=== PATIENT | female | born 1955 | race Caucasian/White ===

== ENCOUNTER 2017-10-05 11:32 | Emergency (ER) | payer MEDICAID ==
[~2017-10-05] VITALS: Ht 160 cm; Wt 84.0 kg
[2017-10-05 13:10] LABS: BASOPHILS % 0.6 % (0.0-2.0); EOSINOPHILS % 4.8 % (0.0-5.0); HEMATOCRIT. 37.6 % (36.0-48.0); HEMOGLOBIN. 12.9 g/dL (12.0-16.0); LYMPHOCYTES % 30.5 % (20.0-50.0); MEAN CORPUSCULAR VOLUME 81.4 fL (81.0-99.0); MEAN PLATELET VOLUME 8.8 fl (7.4-10.4); MONOCYTES % 6.4 % (2.0-8.0); NEUTROPHILS % 57.7 % (40.0-76.0); PLATELET 341 x1000/uL (130-400); RED BLOOD CELL COUNT 4.62 mill/uL (4.2-5.4); RED CELL DISTRIBUTION WIDTH 13.4 % (11.6-14.6)
[2017-10-05 13:16] LABS: PROTHROMBIN TIME 10.7 sec (9.4-11.6)
[2017-10-05 13:22] LABS: CHLORIDE 104 mEq/L (98-107)
[2017-10-05 15:32] LABS: KETONES URINE NEGATIVE (NEGATIVE); LEUKOCYTE ESTERASE URINE 1+ (NEGATIVE); NITRITE URINE NEGATIVE (NEGATIVE); OCCULT BLOOD URINE TRACE (NEGATIVE); PH URINE 5.5 (4.5-8.0); PROTEIN URINE NEGATIVE (NEGATIVE); SPECIFIC GRAVITY URINE 1.013 (1.005-1.030); UROBILINOGEN URINE 0.2 E.U./dL (0.2-1.0)
[2017-10-05 15:45] LABS: CLARITY URINE CLEAR (CLEAR); COLOR URINE SLIGHTLY BLOODY (YELLOW)
[2017-10-05] MEDS ORDERED: CEPHALEXIN 500MG CAPSULE PO ONE (16:30)
[2017-10-05 16:33] VITALS: BP 141/77
== END 2017-10-05 16:35 | disposition home or self-care (01) ==
LOC: ER 13:33
DX: N39.0 Urinary tract infection, site not specified (principal); I10 Essential (primary) hypertension
CPT/HCPCS: 36415; 80053; 81003; 85025; 85610; 87077; 87086; 99284

== ENCOUNTER 2017-11-12 21:12 | Emergency (ER) | payer MEDICAID ==
[~2017-11-12] VITALS: Ht 160 cm; Wt 85.0 kg
[2017-11-12] MEDS ORDERED: ASPIRIN 81MG TABLET PO ONE (23:45)
[2017-11-13 00:11] LABS: BASOPHILS % 0.9 % (0.0-2.0); CHLORIDE 101 mEq/L (98-107); EOSINOPHILS % 2.6 % (0.0-5.0); HEMATOCRIT. 38.5 % (36.0-48.0); HEMOGLOBIN. 13.2 g/dL (12.0-16.0); LYMPHOCYTES % 24.8 % (20.0-50.0); MEAN CORPUSCULAR HEMOGLOBIN 27.7 pg (28.0-32.0); MEAN PLATELET VOLUME 8.7 fl (7.4-10.4); MONOCYTES % 7.6 % (2.0-8.0); NEUTROPHILS % 64.1 % (40.0-76.0); PLATELET 400 x1000/uL (130-400); RED BLOOD CELL COUNT 4.76 mill/uL (4.2-5.4); RED CELL DISTRIBUTION WIDTH 13.3 % (11.6-14.6)
[2017-11-13 00:17] LABS: D-DIMER 0.56 mg/L FEU (<0.50); PARTIAL THROMBOPLASTIN TIME 27.4 sec (23.4-31.0); PROTHROMBIN TIME 10.6 sec (9.4-11.6)
[2017-11-13 00:25] LABS: CLARITY URINE CLEAR (CLEAR); COLOR URINE YELLOW (YELLOW); KETONES URINE NEGATIVE (NEGATIVE); LEUKOCYTE ESTERASE URINE 2+ (NEGATIVE); NITRITE URINE NEGATIVE (NEGATIVE); OCCULT BLOOD URINE TRACE (NEGATIVE); PH URINE 7.5 (4.5-8.0); PROTEIN URINE TRACE (NEGATIVE); SPECIFIC GRAVITY URINE 1.023 (1.005-1.030); UROBILINOGEN URINE 0.2 E.U./dL (0.2-1.0)
[2017-11-13] MEDS ORDERED: KETOROLAC 30MG/ML VIAL IV ONE (01:00)
[2017-11-13] MEDS ORDERED: CEFTRIAXONE 1 G PREMIX 50 ML IV NR (02:30)
[2017-11-13] MEDS ORDERED: IOHEXOL-350 100 ML BOTTLE ONE (02:57)
[2017-11-13 04:08] VITALS: BP 139/79
== END 2017-11-13 04:09 | disposition home or self-care (01) ==
LOC: ER 21:12 → CANBEDREQ 11-13 06:59
DX: N39.0 Urinary tract infection, site not specified (principal); R07.89 Other chest pain; M32.9 Systemic lupus erythematosus, unspecified; I10 Essential (primary) hypertension; Z98.890 Other specified postprocedural states; Z79.82 Long term (current) use of aspirin
CPT/HCPCS: 36415; 71045; 71275; 80053; 81003; 83880; 84484; 85025; 85379; 85610; 85730; 87077; 87086; 93005; 96365; 96375; 99285; J0696; J1885; Q9967; Z7610

== ENCOUNTER 2022-01-11 11:25 | Emergency (ER) | payer MEDICARE, MEDICAID ==
[~2022-01-11] VITALS: Ht 162.6 cm; Wt 60.0 kg
[2022-01-11] MEDS ORDERED: VISCOUS LIDOCAINE 2% 15 ML UDC MM STA (12:31)
[2022-01-11] MEDS ORDERED: MAGNESIUM/ALUMINUM HYDROXIDE/SIMETHICONE 30ML UDC PO ONE (12:45)
[2022-01-11] MEDS ORDERED: FAMOTIDINE 20MG/2ML VIAL IV ONE (12:45)
[2022-01-11] MEDS ORDERED: MORPHINE SULFATE 2 MG/ML CPJ (NOT FOR IM USE) IV ONE (12:45)
[2022-01-11] MEDS ORDERED: ONDANSETRON HCL 4MG/2ML INJ IV ONE (12:45)
[2022-01-11 13:18] LABS: CHLORIDE 102 mEq/L (98-107)
[2022-01-11 13:21] LABS: PROTHROMBIN TIME 10.8 sec (9.6-11.0)
[2022-01-11 13:23] LABS: EOSINOPHILS % 0.6 % (0.0-5.0); HEMOGLOBIN. 12.5 g/dL (12.0-16.0); LYMPHOCYTES % 19.6 % (20.0-50.0); MEAN CORPUSCULAR HEMOGLOBIN 26.1 pg (28.0-32.0); MEAN CORPUSCULAR VOLUME 77.5 fL (81.0-99.0); MEAN PLATELET VOLUME 8.7 fl (7.4-10.4); NEUTROPHILS % 73.8 % (40.0-76.0); PLATELET 485 x1000/uL (130-400); RED BLOOD CELL COUNT 4.78 mill/uL (4.2-5.4); RED CELL DISTRIBUTION WIDTH 14.6 % (11.6-14.6)
[2022-01-11] MEDS ORDERED: KETOROLAC 30MG/ML VIAL IV ONE (14:45)
[2022-01-11] MEDS ORDERED: METOCLOPRAMIDE HCL 10MG/2ML VIAL IV ONE (14:45)
[2022-01-11 14:53] VITALS: BP 122/68
[2022-01-11] MEDS ORDERED: ONDA4TAB11 PO (15:58)
== END 2022-01-11 16:04 | disposition home or self-care (01) ==
LOC: ER 11:25
DX: R10.13 Epigastric pain (principal); R11.2 Nausea with vomiting, unspecified; I10 Essential (primary) hypertension; E11.9 Type 2 diabetes mellitus without complications; M32.9 Systemic lupus erythematosus, unspecified; M81.0 Age-related osteoporosis without current pathological fracture; T43.215A Adverse effect of selective serotonin and norepinephrine reuptake inhibitors, initial encounter; Y92.018 Other place in single-family (private) house as the place of occurrence of the external cause
CPT/HCPCS: 36415; 71045; 80053; 83690; 83880; 84484; 85025; 85610; 93005; 96374; 96375; 99285; J1885; J2270; J2405; J2765; J3490

== ENCOUNTER 2022-03-06 10:34 | Emergency (ER) | payer OTHER, MEDICAID ==
[~2022-03-06] VITALS: Ht 160 cm; Wt 84.0 kg
[~2022-03-06 10:34] MED LIST: ONDA4TAB11 PO
[2022-03-06 10:53] VITALS: BP 151/61
[2022-03-06] MEDS ORDERED: IBUPROFEN 600MG TABLET PO NR (13:28)
[2022-03-06] MEDS ORDERED: ONDANSETRON 4MG ODT PO NR (13:28)
[2022-03-06 13:37] LABS: CLARITY URINE CLEAR (CLEAR); COLOR URINE YELLOW (YELLOW); KETONES URINE TRACE (NEGATIVE); LEUKOCYTE ESTERASE URINE TRACE (NEGATIVE); NITRITE URINE NEGATIVE (NEGATIVE); OCCULT BLOOD URINE NEGATIVE (NEGATIVE); PROTEIN URINE 1+ (NEGATIVE); SPECIFIC GRAVITY URINE 1.021 (1.005-1.030); UROBILINOGEN URINE 0.2 E.U./dL (0.2-1.0)
[2022-03-06 14:54] LABS: BASOPHILS % 0.4 % (0.0-2.0); EOSINOPHILS % 2.2 % (0.0-5.0); HEMATOCRIT. 35.7 % (36.0-48.0); HEMOGLOBIN. 11.7 g/dL (12.0-16.0); LYMPHOCYTES % 17.5 % (20.0-50.0); MEAN CORPUSCULAR HEMOGLOBIN 26.6 pg (28.0-32.0); MEAN CORPUSCULAR VOLUME 80.9 fL (81.0-99.0); MEAN PLATELET VOLUME 8.6 fl (7.4-10.4); MONOCYTES % 5.7 % (2.0-8.0); NEUTROPHILS % 74.2 % (40.0-76.0); PLATELET 396 x1000/uL (130-400); RED BLOOD CELL COUNT 4.41 mill/uL (4.2-5.4); RED CELL DISTRIBUTION WIDTH 15.2 % (11.6-14.6)
[2022-03-06 15:01] LABS: CHLORIDE 103 mEq/L (98-107)
[2022-03-06] MEDS ORDERED: MECL-217 PO ×3 (15:49→16:09)
[2022-03-06] MEDS ORDERED: NAPR-681 PO ×3 (15:49→16:09)
== END 2022-03-06 16:11 | disposition home or self-care (01) ==
LOC: ER 10:34
DX: R42 Dizziness and giddiness (principal); R51.9 Headache, unspecified; I10 Essential (primary) hypertension; E11.9 Type 2 diabetes mellitus without complications
CPT/HCPCS: 36415; 71045; 80053; 81003; 85025; 93005; 99285; Q0162

== ENCOUNTER 2022-06-11 10:08 | Emergency (ER) | payer OTHER, MEDICAID ==
[~2022-06-11] VITALS: Ht 162.6 cm; Wt 80.0 kg
[~2022-06-11 10:08] MED LIST changes: +MECL-217 PO; +NAPR-681 PO
[2022-06-11] MEDS ORDERED: MECLIZINE 25MG TABLET PO ONE (12:15)
[2022-06-11] MEDS ORDERED: SODIUM CHLORIDE 0.9% 1,000 ML IV ONE (12:15)
[2022-06-11 12:33] LABS: BASOPHILS % 0.8 % (0.0-2.0); EOSINOPHILS % 4.6 % (0.0-5.0); HEMATOCRIT. 37.3 % (36.0-48.0); HEMOGLOBIN. 12.2 g/dL (12.0-16.0); LYMPHOCYTES % 21.3 % (20.0-50.0); MEAN CORPUSCULAR HEMOGLOBIN 26.9 pg (28.0-32.0); MEAN CORPUSCULAR VOLUME 82.2 fL (81.0-99.0); MONOCYTES % 6.3 % (2.0-8.0); PLATELET 355 x1000/uL (130-400); RED BLOOD CELL COUNT 4.53 mill/uL (4.2-5.4); RED CELL DISTRIBUTION WIDTH 13.9 % (11.6-14.6)
[2022-06-11 14:54] LABS: CLARITY URINE CLEAR (CLEAR); COLOR URINE YELLOW (YELLOW); KETONES URINE NEGATIVE (NEGATIVE); LEUKOCYTE ESTERASE URINE 2+ (NEGATIVE); NITRITE URINE NEGATIVE (NEGATIVE); OCCULT BLOOD URINE NEGATIVE (NEGATIVE); PROTEIN URINE NEGATIVE (NEGATIVE); SPECIFIC GRAVITY URINE 1.015 (1.005-1.030); UROBILINOGEN URINE 0.2 E.U./dL (0.2-1.0)
[2022-06-11 15:01] LABS: CHLORIDE 107 mEq/L (98-107)
[2022-06-11] MEDS ORDERED: MECL-159 MT (16:43)
[2022-06-11] MEDS ORDERED: IOHEXOL-350 100 ML BOTTLE ONE (16:52)
[2022-06-11 17:00] VITALS: BP 112/51
== END 2022-06-11 17:48 | disposition home or self-care (01) ==
LOC: ER 10:08
DX: R42 Dizziness and giddiness (principal); I10 Essential (primary) hypertension; E11.9 Type 2 diabetes mellitus without complications; M32.9 Systemic lupus erythematosus, unspecified; Z79.84 Long term (current) use of oral hypoglycemic drugs; Z79.899 Other long term (current) drug therapy
CPT/HCPCS: 36415; 70450; 70496; 73030; 80053; 81003; 83605; 84484; 85025; 93005; 96360; 96361; 99285; J7030; J8597; Q9967

== ENCOUNTER → 2022-12-21 | Day surgery (SDC) | payer OTHER, MEDICAID, MEDICARE ==
[2022-12-21] VITALS (11 sets, daily range): BP systolic 119–138; BP diastolic 41–65
[~2022-12-21] VITALS: Ht 160 cm; Wt 83.0 kg
[~2022-12-21] MED LIST changes: +FENTANYL CITRATE/PF 50MCG/ML 2ML VIAL IV ONE; +FENTANYL CITRATE/PF 50MCG/ML 2ML VIAL ONE; +HYDROCODONE/ACETAMINOPHEN 5/325MG TABLET PO PRN; +LIDOCAINE HCL 1% 10 MG/ML 10ML VIAL ONE; +MECL-159 MT; +SODIUM BICARBONATE 4% (2.4MEQ) 5ML VIAL IV ONE
[2022-12-21 13:22] LABS: HEMATOCRIT 33.7 % (36.0-48.0); HEMOGLOBIN 11.5 g/dL (12.0-16.0)
== END | disposition home or self-care (01) ==
LOC: RAD 08:31
PROVIDERS: ATTEND Internal Medicine Nephrology
DX: L93.0 Discoid lupus erythematosus (principal); I12.9 Hypertensive chronic kidney disease with stage 1 through stage 4 chronic kidney disease, or unspecified chronic kidney disease; E11.22 Type 2 diabetes mellitus with diabetic chronic kidney disease; N18.30 Chronic kidney disease, stage 3 unspecified; Z79.84 Long term (current) use of oral hypoglycemic drugs; Z79.899 Other long term (current) drug therapy; Z98.890 Other specified postprocedural states
CPT/HCPCS: 36415; 50200; 76942; 85014; 85018; 88305; 88346; 88348; J3010; J3490; Z7610

== ENCOUNTER 2022-12-28 07:23 | Emergency (ER) | payer OTHER, MEDICAID, MEDICARE ==
[~2022-12-28] VITALS: Ht 160 cm; Wt 80.6 kg
[~2022-12-28 07:23] MED LIST changes: -FENTANYL CITRATE/PF 50MCG/ML 2ML VIAL IV ONE; -FENTANYL CITRATE/PF 50MCG/ML 2ML VIAL ONE; -HYDROCODONE/ACETAMINOPHEN 5/325MG TABLET PO PRN; -LIDOCAINE HCL 1% 10 MG/ML 10ML VIAL ONE; -SODIUM BICARBONATE 4% (2.4MEQ) 5ML VIAL IV ONE
[2022-12-28] MEDS ORDERED: ONDANSETRON HCL 4MG/2ML INJ IV STA (08:13)
[2022-12-28] MEDS ORDERED: MAGNESIUM/ALUMINUM HYDROXIDE/SIMETHICONE 30ML UDC PO STA (08:13)
[2022-12-28] MEDS ORDERED: SODIUM CHLORIDE 0.9% 1,000 ML IV ONE (08:15)
[2022-12-28 08:38] LABS: BASOPHILS % 0.3 % (0.0-2.0); EOSINOPHILS % 1.4 % (0.0-5.0); HEMATOCRIT. 37.6 % (36.0-48.0); HEMOGLOBIN. 12.7 g/dL (12.0-16.0); LYMPHOCYTES % 13.1 % (20.0-50.0); MEAN CORPUSCULAR HEMOGLOBIN 27.9 pg (28.0-32.0); MEAN CORPUSCULAR VOLUME 82.8 fL (81.0-99.0); MEAN PLATELET VOLUME 8.3 fl (7.4-10.4); MONOCYTES % 6.7 % (2.0-8.0); NEUTROPHILS % 78.5 % (40.0-76.0); PLATELET 493 x1000/uL (130-400); RED BLOOD CELL COUNT 4.54 mill/uL (4.2-5.4); RED CELL DISTRIBUTION WIDTH 13.1 % (11.6-14.6)
[2022-12-28 08:46] LABS: CHLORIDE 108 mEq/L (98-107)
[2022-12-28 09:09] LABS: CLARITY URINE CLEAR (CLEAR); COLOR URINE DARK YELLOW (YELLOW); KETONES URINE NEGATIVE (NEGATIVE); LEUKOCYTE ESTERASE URINE TRACE (NEGATIVE); NITRITE URINE NEGATIVE (NEGATIVE); OCCULT BLOOD URINE NEGATIVE (NEGATIVE); PH URINE 7.5 (4.5-8.0); PROTEIN URINE TRACE (NEGATIVE); SPECIFIC GRAVITY URINE 1.013 (1.005-1.030); UROBILINOGEN URINE 0.2 E.U./dL (0.2-1.0)
[2022-12-28] MEDS ORDERED: OMEP40CA20 MT (10:12)
[2022-12-28] MEDS ORDERED: ACETAMINOPHEN 325MG TABLET PO ONE (10:30)
[2022-12-28] MEDS ORDERED: MAGNESIUM/ALUMINUM HYDROXIDE/SIMETHICONE 30ML UDC PO ONE (10:45)
[2022-12-28 11:12] VITALS: BP 141/67
== END 2022-12-28 11:13 | disposition home or self-care (01) ==
LOC: ER 07:23
DX: R10.9 Unspecified abdominal pain (principal); I10 Essential (primary) hypertension; E11.9 Type 2 diabetes mellitus without complications
CPT/HCPCS: 36415; 74176; 80053; 81003; 83690; 85025; 93005; 99285; J7030

== ENCOUNTER 2023-05-15 07:55 | Emergency (ER) | payer MEDICARE, MEDICAID ==
[~2023-05-15] VITALS: Ht 162.6 cm; Wt 71.0 kg
[~2023-05-15 07:55] MED LIST changes: -MECL-159 MT; +MECL-299 MT; +OMEP40CA20 MT
[2023-05-15 08:03] VITALS: O2SAT 99
[2023-05-15 08:34] LABS: BASOPHILS % 0.5 % (0.0-2.0); EOSINOPHILS % 0.6 % (0.0-5.0); HEMATOCRIT. 38.6 % (36.0-48.0); LYMPHOCYTES % 18.2 % (20.0-50.0); MEAN CORPUSCULAR HEMOGLOBIN 27.2 pg (28.0-32.0); MEAN CORPUSCULAR HGB CONC 33.7 g/dL (31.0-37.0); MEAN CORPUSCULAR VOLUME 80.7 fL (81.0-99.0); MEAN PLATELET VOLUME 8.6 fl (7.4-10.4); MONOCYTES % 6.3 % (2.0-8.0); NEUTROPHILS % 74.4 % (40.0-76.0); PLATELET 470 x1000/uL (130-400); RED BLOOD CELL COUNT 4.79 mill/uL (4.2-5.4); RED CELL DISTRIBUTION WIDTH 13.8 % (11.6-14.6); WHITE BLOOD COUNT 9.8 x1000/uL (4.5-11.0)
[2023-05-15 08:46] LABS: CHLORIDE 102 mEq/L (98-107); INDEX HEMOLYSI 1 (1-3); INDEX ICTERIC 1 (1-4); INDEX LIPEMIC 1 (1-3); POTASSIUM 4.2 mEq/L (3.5-5.1); SODIUM 135 mEq/L (136-145)
[2023-05-15 08:47] LABS: CLARITY URINE CLEAR (CLEAR); COLOR URINE DARK YELLOW (YELLOW); GLUCOSE URINE NEGATIVE (NEGATIVE); KETONES URINE NEGATIVE (NEGATIVE); LEUKOCYTE ESTERASE URINE TRACE (NEGATIVE); NITRITE URINE NEGATIVE (NEGATIVE); OCCULT BLOOD URINE NEGATIVE (NEGATIVE); PH URINE 7.5 (4.5-8.0); PROTEIN URINE TRACE (NEGATIVE); SPECIFIC GRAVITY URINE 1.018 (1.005-1.030); UROBILINOGEN URINE 0.2 E.U./dL (0.2-1.0)
[2023-05-15] MEDS ORDERED: MAGNESIUM/ALUMINUM HYDROXIDE/SIMETHICONE 30ML UDC PO STA (08:49)
[2023-05-15] MEDS ORDERED: DICYCLOMINE 10 MG/5 ML ORAL SYR PO STA (08:49)
[2023-05-15 08:54] LABS: ALANINE AMINOTRANSFERASE 22 IU/L (13-61); ALBUMIN 3.9 g/dL (3.4-5.0); ASPARTATE AMINOTRANSFERASE 22 IU/L (15-37); BILIRUBIN TOTAL 0.7 mg/dL (0.1-1.0); CALCIUM 8.9 mg/dL (8.5-10.1); CARBON DIOXIDE 27 mEq/L (21-32); CREATININE 0.8 mg/dL (0.6-1.3); GLUCOSE 123 mg/dL (70-105); PROTEIN TOTAL 8.8 g/dL (6.0-8.3); UREA NITROGEN BLOOD 24 mg/dL (7-21)
[2023-05-15] MEDS ORDERED: FAMO-135 MT (08:57)
[2023-05-15] MEDS ORDERED: FAMOTIDINE 20MG TABLET PO ONE (09:00)
[2023-05-15 09:10] LABS: SQUAMOUS EPITHELIAL CELL URINE RARE /lpf (RARE/1+); WBC URINE 0-2 /hpf (0-2)
[2023-05-15 09:12] LABS: BACTERIA URINE TRACE; RBC URINE 0-2 /hpf (0-2)
[2023-05-15 10:01] VITALS: BP 132/72; PULSE 78; RESP 18; TEMP 98.7
== END 2023-05-15 10:02 | disposition home or self-care (01) ==
LOC: ER 07:55
DX: K29.70 Gastritis, unspecified, without bleeding (principal); E11.9 Type 2 diabetes mellitus without complications; I10 Essential (primary) hypertension
CPT/HCPCS: 36415; 80053; 81003; 85025; 99284

== ENCOUNTER 2024-04-02 09:31 | Emergency (ER) | payer MEDICARE, MEDICAID ==
[~2024-04-02] VITALS: Ht 160 cm; Wt 78.0 kg
[~2024-04-02 09:31] MED LIST changes: +FAMO-135 MT; +ONDA-239 PO; -ONDA4TAB11 PO
[2024-04-02 09:42] VITALS: BP 123/56; PULSE 76; RESP 16; TEMP 98.2; O2SAT 97
[2024-04-02] MEDS ORDERED: PRED5DRO22 RIGHTEYE (10:30)
[2024-04-02] MEDS ORDERED: CELE-116 MT (10:30)
== END 2024-04-02 11:57 | disposition home or self-care (01) ==
LOC: ER 09:31
DX: H15.101 Unspecified episcleritis, right eye (principal); E11.9 Type 2 diabetes mellitus without complications; Z79.899 Other long term (current) drug therapy
CPT/HCPCS: 99283

== ENCOUNTER 2024-12-01 11:48 | Emergency (ER) | payer OTHER, MEDICAID ==
[~2024-12-01] VITALS: Ht 160 cm; Wt 78.0 kg
[~2024-12-01 11:48] MED LIST changes: +CELE-116 MT; +PRED5DRO22 RIGHTEYE
[2024-12-01 11:55] VITALS: O2SAT 96
[2024-12-01] MEDS: IBUPROFEN 600MG TABLET PO ONE (15:57)
[2024-12-01 17:00] VITALS: BP 125/70; PULSE 81; RESP 16; TEMP 37; O2SAT 97
== END 2024-12-01 17:06 | disposition home or self-care (01) ==
LOC: ER 11:48
DX: M79.675 Pain in left toe(s) (principal); E11.9 Type 2 diabetes mellitus without complications; I10 Essential (primary) hypertension; Z79.899 Other long term (current) drug therapy; Z98.890 Other specified postprocedural states
CPT/HCPCS: 73630; 99283